=== PATIENT | female | born 1945 | race Two or more races ===

== ENCOUNTER 2018-10-27 06:49 | Outpatient (CLI) | payer OTHER ==
[2018-10-27] VITALS (11 sets, daily range): BP systolic 115–152; BP diastolic 62–84
[~2018-10-27] VITALS: Ht 162.6 cm; Wt 92.5 kg
[2018-10-27] MEDS ORDERED: FLUT1DIS IH (07:31)
[2018-10-27] MEDS ORDERED: LOSA100T14 PO (07:31)
[2018-10-27] MEDS ORDERED: ASCO500T PO (07:31)
[2018-10-27] MEDS ORDERED: RANI150C PO (07:31)
[2018-10-27] MEDS ORDERED: POTA10TA12 PO (07:31)
[2018-10-27] MEDS ORDERED: METF500T16 PO (07:31)
[2018-10-27] MEDS ORDERED: ATOR10TA60 PO (07:31)
[2018-10-27] MEDS ORDERED: ZOLP5TAB5 PO (07:31)
[2018-10-27] MEDS ORDERED: ASPI-630 PO (07:31)
[2018-10-27] MEDS ORDERED: COLC0.6T34 PO (07:31)
[2018-10-27] MEDS ORDERED: LORA10TA3 PO (07:31)
[2018-10-27] MEDS ORDERED: HYDR-2145 PO (07:31)
[2018-10-27 07:38] LABS: BASO % 1 % (0-3); EOS # 0.1 x10^3/uL (0.0-0.7); EOS % 1 % (0-3); HEMATOCRIT 36.9 % (36.0-47.0); HEMOGLOBIN 12.4 g/dL (12.0-15.5); LYMPH # 1.4 x10^3/uL (1.0-4.8); LYMPH % 29 % (24-48); MEAN CORPUSCULAR HEMOGLOBIN 31 pg (25-35); MEAN CORPUSCULAR HGB CONC 34 g/dL (31-37); MEAN CORPUSCULAR VOLUME 93 fL (79-100); MONO # 0.4 x10^3/uL (0.0-1.1); MONO % 8 % (0-9); NEUT % 62 % (31-73); PLATELET COUNT 72 x10^3/uL (140-400); RED BLOOD COUNT 3.98 x10^6/uL (3.50-5.40); RED CELL DISTRIBUTION WIDTH 14.9 % (11.5-14.5)
[2018-10-27 07:53] LABS: PROTHROMBIN TIME PATIENT 15.1 SEC (11.7-14.0)
[2018-10-27] MEDS ORDERED: MIDAZOLAM HCL/PF 2 MG/2 ML VIAL. ONE (08:11)
[2018-10-27] MEDS ORDERED: fentaNYL PF VIAL 100 MCG/2 ML VIAL ONE (08:12)
[2018-10-27] MEDS ORDERED: LIDOCAINE WITH 8.4% SOD BICARB 3 ML DISP.SYRIN. ONE (08:31)
[2018-10-27] MEDS ORDERED: fentaNYL PF VIAL 100 MCG/2 ML VIAL IV ONE (09:15)
[2018-10-27] MEDS ORDERED: MIDAZOLAM HCL/PF 2 MG/2 ML VIAL. IV ONE (09:15)
[2018-10-27] MEDS ORDERED: LIDOCAINE WITH 8.4% SOD BICARB 3 ML DISP.SYRIN. IJ ONE (09:15)
--- NOTE | 2018-10-27 10:15 | NUR ---
Discharge Note: MATI CRAWFORD Discharge instructions and discharge home medications reviewed with Patient and a copy given. All questions have been answered and understanding verbalized. The following instructions and handouts were given: bone marrow biopsy, sedation Discontinued lines and drains: IV site dc'd intact, dressing to sacrum clean and dry Patient discharged to home with family via wheelchair. RUBEN LARA Addendum: 10/27/18 at 1039 by DI PINEDO RN Amended: Links added.
--- NOTE | 2018-10-28 08:26 | RAD ---
CT-guided bone marrow biopsy. 10/28/2018 8:21 AM Indication: THROMBOCYTOPENIA Discussion: The risks and benefits of the procedure, including but not limited to, bleeding and infection were discussed patient. Informed consent was obtained. The patient was brought to the CT scanner and placed in the prone position. A timeout procedure was performed. [employer] CT imaging of the pelvis demonstrated left ilium amenable to bone marrow biopsy. The overlying soft tissues were prepped and draped using maximum sterile barrier technique. 1% lidocaine without epinephrine was administered for local anesthesia. Under intermittent CT guidance, an OncControl needle was advanced into the bone marrow of the left iliac crest. 2 Aspirates and 1 core biopsy samples were obtained. Samples were delivered to pathology was present at the time of procedure. The needle was removed and manual pressure held to achieve hemostasis. No immediate complications were identified. The procedure was performed under conscious sedation including continuous cardiopulmonary monitoring via dedicated sedation nurse. Sedation time: 15 minutes Impression: Successful CT-guided bone marrow biopsy of the left iliac crest . PQRS Compliance Statement: One or more of the following individualized dose reduction techniques were utilized for this examination: 1. Automated exposure control 2. Adjustment of the mA and/or kV according to patient size 3. Use of iterative reconstruction technique
--- NOTE | 2018-11-06 16:06 | PATHOLOGY ---
[facility] Accession Number: [id number] . 01 Material submitted: . PART A: bone - BONE MARROW BIOPSY PART B: bone - BONE MARROW CLOT PART C: bone - BONE MARROW ASPIRATE SLIDES PART D: bone - PERIPHERAL BLOOD SMEARS PART E: bone - BONE MARROW FLOW . 01 Clinical history: . 72 year old woman with thrombocytopenia. . 02 Diagnosis: Bone marrow aspirate, biopsy, cell clot and peripheral blood: - Peripheral blood with mild to moderate thrombocytopenia. - Mildly hypercellular bone marrow with trilineage hematopoiesis, mild erythroid hyperplasia, mild dyspoiesis, mild polyclonal plasmacytosis and no evidence of lymphoma, acute leukemia or plasma cell dyscrasia. (See comment) [facility]/11/06/2018 . 02 Comment: Overall, the bone marrow is mildly hypercellular for the patient's age with trilineage hematopoiesis, mild erythroid hyperplasia, mild dyspoiesis, mild polyclonal plasmacytosis and no evidence of lymphoma, acute leukemia or plasma cell dyscrasia. The dyspoiesis is mild and while it could possibly represent a low grade myelodysplastic syndrome, it does not meet the morphologic criteria for myelodysplasia. The mild polyclonal plasmacytosis may represent a chronic inflammatory state. Cytogenetics reveals a normal female karyotype. Correlation with clinical history and additional laboratory data is required. (CLW/db; 11/05/2018) . 02 Electronically signed: . Flavia Gutierres MD, Pathologist NPI- [id number] . 01 Gross description: . A. The specimen is received in formalin, labeled "Massiel Williamson, BM BX" and consists of a brown bone core measuring 1.4 cm in length and 0.3 cm in diameter which is entirely submitted in A1 following decalcification. . B. The specimen is received in formalin, labeled "Massiel Williamson, BM ASP clot" and consists of blood clot measuring 2.7 x 2.6 x 0.4 cm which is entirely submitted in B1. (SDY; 10/27/2018) SYU/SYU . 02 Microscopic: . CBC Data (10/27/18): WBC 5,000 /uL, RBC 3.98, hemoglobin 12.4 g/dL, hematocrit 36.9%, MCV 93 fL, MCH 31 pg, MCHC 34 g/dL, RDW 14.9%, and platelet count 72,000 /uL. White blood cell differential: segs 62%, lymphs 29%, monos 8%, eos 1%, and basos 1%. . Peripheral Blood Smear: Cytomorphological examination of the Egan's stained peripheral blood smear confirms the provided data. Red blood cells are normocytic and are without significant anisopoikilocytosis. White blood cells are predominantly segmented neutrophils and are without significant dyspoiesis or significant left shift. Lymphocytes are predominantly small, round, and mature appearing with condensed chromatin and scant cytoplasm with rare admixed large granular lymphocytes. Monocytes are mature. Platelets are mildly decreased in number and mainly normal in morphology with rare larger platelets noted. . Aspirate Smears: Cytomorphological examination of the Egan's stained aspirate smears show spicules present. The overall cellularity is approximately 50%. The myeloid to erythroid ratio is 1.5:1. Full myeloid maturation is identified and is without significant dyspoiesis. Erythroid maturation is mildly dyserythropoietic with occasional irregular nuclear contours, nuclear cytoplasmic dyssynchrony and rare mitotic figures. In a 500 cell differential, there are 1% blasts (no Opal rods are seen), 49% more differentiated myeloids, 32% erythroid precursors, 16% lymphocytes and 2% plasma cells. Megakaryocytes are proportional in number and both normal and abnormal in morphology with variable sizes and nuclear abnormalities. Occasional small and/or hypolobated forms are noted. No lymphoid aggregates or markedly atypical lymphoid cells are seen. Plasma cells are without atypia. Iron stain of the aspirate smear shows 1/4+ iron positivity with spicules present. No ringed sideroblasts are identified. . Core Biopsy and Cell Clot: The decalcified bone marrow core biopsy is adequate. The bone marrow is mildly hypercellular with an overall cellularity of approximately 40-50%. The myeloid to erythroid ratio is 1-2:1. Myeloid maturation is without significant dyspoiesis. Erythroid maturation is mildly dyserythropoietic. Megakaryocytes are normal in number and both normal and abnormal in morphology. No lymphoid aggregates or markedly atypical lymphoid cells are seen. Bony trabeculae and blood vessels are unremarkable. The cell clot has spicules present that are similar in cellularity and differential morphology as previously described. . Properly controlled special stains are performed. . Block A1 Iron - 1/4+ iron positivity Reticulin - No significant reticulin fibrosis . Block B1 Iron - 1/4+ iron positivity with spicules present . To further evaluate the plasma cells and to identify cells in a tissue architectural context, properly controlled immunohistochemical stains are performed. . Block A1 CD138 - 5-10% scattered plasma cells Ulen and Lambda in situ hybridization - plasma cells are polytypic . Block B1 CD138 - 5-10% scattered plasma cells Ulen and Lambda in situ hybridization - plasma cells are polytypic . Flow Cytometry: Flow cytometric immunophenotypic analysis was performed at [facility]. The diagnosis is "no diagnostic immunophenotypic abnormalities detected, increased number of hematogones." There are 13.4% lymphocytes. Of the lymphocytes, there are 68% T-cells with a CD4/CD8 ratio of 3.9 and no aberrant T-cell antigen expression and 22% polyclonal mature B-cells (kappa lambda ratio of 1.5). There are 2.0% CD34 positive cells (blasts) and 2% precursor B-cells. There are 0.3% plasma cells. Increased number of hematogones (precursor B-cells) is a non-specific finding and it usually indicates active hematopoiesis which may be particularly prominent in a regenerating marrow or in patients with autoimmune or congenital cytopenias, neoplasm and immune deficiency. Please see separate flow cytometry report from [facility] ([id number]). . Cytogenetics: Cytogenetic chromosomal analysis was performed at [facility]. The karyotype is 46,XX(20). The interpretation is a normal female karyotype. Cytogenetic analysis shows a normal female karyotype in all cells analyzed. Please see separate cytogenetics report from [facility] ([id number]). (CLW/db; 11/05/2018) . 02 Pathologist provided ICD-10: D69.6, D75.89 . 02 CPT . 149813, 692834, 180298, 824370, 026771, 098469, 058288, 598895, 547774, Q57162, D31194, J29030 Specimen Comment: A courtesy copy of this report has been sent to Specimen Comment: [phone], , . Specimen Comment: Report sent to ,DR HENSON / DR SABA Performed at: [address], [place] [id number] MD Nathaniel Ware MD Phone: [phone] Performed at: [address] [id number] MD Gia Barron MD Phone: [phone]
== END 2018-10-27 10:15 | disposition home or self-care (01) ==
LOC: INTRAD 06:49
PROVIDERS: ATTEND Internal Medicine Hematology & Oncology
DX: D69.6 Thrombocytopenia, unspecified (principal)
CPT/HCPCS: 36415; 38222; 77012; 85025; 85610; 88184; 88185; 88237; 88305; 88311; 88313; 88342; 88364; 88365; 99152; J2250; J3010